=== PATIENT | female | born 1945 | race Caucasian/White ===

== ENCOUNTER → 2017-01-09 | Outpatient (CLI) | payer MEDICARE, OTHER ==
[~2017-01-09] MED LIST: CALCIUM 600/VIT1 TAB PO; CALCIUM 600600 M2 PO; CELEBREX 200MG200 MG PO; COLACE 100100 MG/CAP; FERROUS SU325 MG/TAB; LORTAB 7.5/5001 TAB PO; LYRICA 50MG CAP50 MG PO; LYRICA 75MG CAP75 MG PO; NORCO 325 MG-7.1 TAB PO; ONE DAILY1 TA1 PO; PREVACID 30MG30 M1 PO; ROXICODONE 55 MG/TAB PO; ULTRAM 50MG TAB50 MG PO; VITAMIN C500 MG PO; XARELTO10 MG; XERALTO PO; ZYLOPRIM 100MG100 MG
== END ==
LOC: COL.RAD 12:14
DX: M25.561 Pain in right knee (principal); M17.11 Unilateral primary osteoarthritis, right knee; Z96.642 Presence of left artificial hip joint

== ENCOUNTER → 2017-03-02 | Outpatient (CLI) | payer MEDICARE | LOC: COL.RAD 13:50 | DX: M17.11 Unilateral primary osteoarthritis, right knee (principal) ==

== ENCOUNTER 2022-06-25 13:18 | Inpatient (IN) | payer MEDICARE, OTHER ==
[2022-06-25] VITALS (17 sets, daily range): BP systolic 95–159; BP diastolic 52–98; PULSE 69–134; TEMP 97.7–100.8
[~2022-06-25] VITALS: Ht 162.6 cm; Wt 124.1 kg
[~2022-06-25 13:18] MED LIST changes: +CALCIUM 600 PLU1 TAB PO; -CALCIUM 600/VIT1 TAB PO; -COLACE 100100 MG/CAP; +COLACE 100100 MG/CAP PO
[2022-06-25 15:34] LABS: HEMATOCRIT 37.5 % (37.0-47.0); HEMOGLOBIN 11.9 g/dl (12.5-16.0); MEAN CELL VOLUME 93 fl (80.0-100.0); MEAN CORPUSCULAR HEMOGLOBIN 29 pg (27-31); MEAN CORPUSCULAR HGB CONC 32 g/dl (33.0-37.0); MEAN PLATELET VOLUME 10.3 fl (7.4-10.4); PLATELET COUNT 332 K/mm3 (130-400); RED BLOOD COUNT 4.05 M/mm3 (4.10-5.30); REDCELL DISTRIBUTION WIDTH-CV 13.6 % (11.5-14.5)
[2022-06-25 15:51] LABS: BILIRUBIN,TOTAL 1.1 mg/dL (0.2-1.2); CALCIUM 9.5 mg/dL (8.4-10.2); CREATININE, serum 1.2 mg/dL (0.57-1.11); POTASSIUM 3.9 mmol/L (3.5-4.5); TOTAL PROTEIN 5.9 gm/dL (6.2-8.1)
[2022-06-25] MEDS ORDERED: ELIQUIS 5MG PO (16:21)
[2022-06-25] MEDS ORDERED: VESICARE10 MG PO (16:21)
[2022-06-25] MEDS ORDERED: LASIX 20MG TABL20 MG PO (16:22)
[2022-06-25] MEDS ORDERED: TOPROL XL100 MG PO (16:22)
[2022-06-25 16:40] LABS: PARTIAL THROMBOPLASTIN TIME 40.9 SECONDS (26.0-37.0)
--- NOTE | 2022-06-25 18:00 | NUR ---
Patient admitted to room 327 from [facility] ED. Pharmacy, allergies, and medications reviewed. Admission paperwork completed. Tele informed this RN that patient was in Afib RVR. МАРИЯ Patiño notified and cardizem gtt and heparin gtt ordered and administered per protocol. Q15 min vitals in progress. VSS. Patient Alert, but intermittently confused. Lamb catheter in place. Securment device in use, no kinks in tubing. Patient running a temp of 100.8, tylenol given per orders. Patient is currently resting in bed, no s/s of pain or discomfort at this time. Respirations are even and unlabored. Call light in reach. Fall precautions in place.
--- NOTE | 2022-06-25 20:00 | NUR ---
PATIENT IS ORIENTED TO PERSON BUT OTHERWISE IS CONFUSED/FORGETFUL. PATIENT IS ABLE TO MAKE SMALL TALK WITH STAFF BUT IS UNSURE OF WHERE SHE IS, WHAT TIME OF DAY IT IS, OR HER SITUATION. NOTED IRREGULAR HR IN THE 90'S ON TELE, A-FIB. PATIENT HAS HX OF A-FIB AND TAKES ELIQUIS. HEPARIN GTT INFUSING AT 21CC/HR INTO RIGHT FORARM IV. CARDIZEM GTT INFUSING AT 5CC/HR WITH NS AT 100CC/HR INTO LEFT AC IV. PATIENT ALSO GETTING IV ABX, SEE MAR. PATIENT WILL NEED PICC LINE PLACEMENT WHICH SHOULD LIKELY OCCURE TOMORROW. COON TO DD WITH MOD AMOUNTS OF YELLOW URINE NOTED. NOTED SKIN ISSUES, SEE SHIFT ASSESSMENT. PT/OT/ST ALL CONSULTED. ORTHO AND I.D. SPECIALIST ALSO CONSULTED. HEAD TO TOE ASSESSMENT COMPLETE. NO OTHER NEEDS AT THIS TIME. CALL LIGHT IN REACH. BED ALARM ON.
[2022-06-26] VITALS (7 sets, daily range): BP systolic 99–149; BP diastolic 52–82; PULSE 56–107; TEMP 98.4–99.5
--- NOTE | 2022-06-26 00:25 | NUR ---
LAB REPORTED CRITICAL HEPXA RESULT. NURSING CONFIRMED PATIENT WAS TAKING ELIQUIS AT HOME, LAST DOSE YESTERDAY, WHICH CAN EFFECT THE HEPXA RESULTS. HEPARIN GTT SHOULD BE TITRADED WITH PTT RESULTS PER PROTOCOL. CALLED HOSPITALIST TO CONFIRM, SEE ORDER FOR ADD ON PTT.
--- NOTE | 2022-06-26 00:45 | NUR ---
LAB CALLED AND REPORTED ISSUES WITH ADD ON PTT, LAB WOULD NOT RUN. FOOD AND BEVERAGE OUTLETS MANAGER COMING UP TO 3RD FLOOR TO DO REDRAW.
--- NOTE | 2022-06-26 01:00 | NUR ---
LAB AT BEDSIDE TO OBTAIN PTT. HEPARIN GTT WAS STOPPED FOR MIN OF 10 MINUTES BEFORE DRAW.
--- NOTE | 2022-06-26 01:40 | NUR ---
LAB CALLED WITH CRITICAL PTT GREATER THAN 400. HEPARIN GTT STOPPED. HOSPITALIST NOTIFIED. PATIENT RESTING WITH NO CHANGE. HOSPITALIST TALKING WITH PHARMACY. SEE ORDERS.
[2022-06-26 04:02] LABS: HEMOGLOBIN 11.2 g/dl (12.5-16.0); MEAN CELL VOLUME 94 fl (80.0-100.0); MEAN CORPUSCULAR HEMOGLOBIN 29 pg (27-31); MEAN CORPUSCULAR HGB CONC 31 g/dl (33.0-37.0); PLATELET COUNT 302 K/mm3 (130-400); RED BLOOD COUNT 3.82 M/mm3 (4.10-5.30); REDCELL DISTRIBUTION WIDTH-CV 13.7 % (11.5-14.5)
[2022-06-26 04:10] LABS: HEMATOCRIT 35.8 % (37.0-47.0)
[2022-06-26 04:18] LABS: ALBUMIN 2.6 gm/dL (3.4-4.8); CALCIUM 8.7 mg/dL (8.4-10.2); CREATININE, serum 1.15 mg/dL (0.57-1.11); MAGNESIUM 1.5 mg/dL (1.6-2.6); PHOSPHOROUS 3.3 mg/dL (2.3-4.7); POTASSIUM 3.5 mmol/L (3.5-4.5)
--- NOTE | 2022-06-26 04:30 | NUR ---
CALLED CRITICAL PTT OF 252.3 AND WBC OF 24.1 TO HOSPITALIST. SEE ORDERS.
[2022-06-26 04:43] LABS: BAND 14 % (0-10); HYPOCHROMIA 2+; LYMPHOCYTE 7 % (20.0-51.0); NEUTROPHILS 77 % (42.0-75.2); PLATELET ESTIMATE NORMAL (NORMAL)
--- NOTE | 2022-06-26 07:51 | NUR ---
CONTACTED [facility] FOR RECS ON HEPARIN DRIP BASED ON NEW PTT RESULT. WILL CONTACT PHARMACY FOR RECS ON MODIFING HEPARIN DRIP BASED ON CURRENT ISSUES WITH AUDRA.
--- NOTE | 2022-06-26 07:56 | NUR ---
NEW RECS RECIEVED FROM LUCY PHARMICIST TO RESUME HEPARIN @ 21MLS/HR. RELAYED INFORMATION TO [facility], NEW ORDERS RECIEVED.
--- NOTE | 2022-06-26 08:10 | NUR ---
RESTARTED HEPARIN @2100/UNITS/HR.AT THIS TIME. PER CONSULTS WITH [facility] AND VANESSA CERVANTES.
--- NOTE | 2022-06-26 08:38 | NUR ---
CONTACTED [facility] AND RE: BLOOD CULTURE RESULTS. HOLD PICC PLACEMENT AT THIS TIME.
--- NOTE | 2022-06-26 10:00 | NUR ---
Patient's primary care nurse contacted ID and at this time due to + BC, PICC placement on hold.
--- NOTE | 2022-06-26 10:15 | NUR ---
PT RESTING IN BED ASSESSMENTS COMPLETE. VSS, HEPARIN RESTARTED PER ORDERS. PT TOLERATING WELL.
--- NOTE | 2022-06-26 12:24 | NUR ---
Initial visit; Patient robinekd Compensation Consulting Manager for looking in on her and visiting about her surgical procedure and her Physician along with Compensation Consulting Manager offering God's blessings and to keep her in Compensation Consulting Manager's prayers.
--- NOTE | 2022-06-26 12:46 | NUR ---
ironworker apprentice shop met with patient to complete intake and discuss discharge plan. Patient reports that she lives at home in [place] with her Bryant ([phone]). Patient is independent with her ADL's. She states that prior to her knee surgery, she was utilizing a cane to assist with ambulation, but has beben utilizing a FWW post surgery. Patient reports that she has been doing out patient therapy at [facility] in [place]. Patient has no home oxygen needs. PCP is Eugenia Hill out of [place] and she utilizes [facility] in [place] for prescriptions. Patient states that she does not have a DPOA-HC established. Education proovided and she is not interested in creating one at this time. Patient is scheduled to return to the OR tomorrow for I&D of her knee. Discharge plan: Home with continued OP-PT pending PT/OT eval
--- NOTE | 2022-06-26 13:19 | NUR ---
VERIFIED WITH [facility] THAT PT DID NOT RECIEVE ELIQUIS AT THEIR FACILITY AND PT AND REPORT THAT LAST DOSE WAS ON MON NIGHT. CALLED AND UPDATED JOSE RAINES.
--- NOTE | 2022-06-26 20:00 | NUR ---
PATIENT IS A&O. LOC IS MUCH IMPROVED SINCE ADMISSION AND PATIENT APPEARS TO NEARLY BACK TO BASELINE WITH SOME MILD, OCCATIONAL FORGETFULNESS NOTED. IRREGULAR HR IN THE 90'S TO LOW 100'S ON TELE. PATIENT HAS HX OF A-FIB AND TAKES ELIQUIS AT HOME. PATIENT IS CURRENTLY ON HEPARIN GTT INFUSION AT 22.5 CC/HR INTO RIGHT FORARM IV. CARDIZEM GTT INFUSING AT 5CC/HR WITH NS AT 100CC/HR INTO LEFT AC IV. PATIENT ALSO GETTING IV ABX, SEE DEC. PATIENT WILL NEED PICC LINE PENDING BLOOD CULTURES PER I.D. NO C/O N/V. TOLERATING AHA DIET. NPO AT MIDNIGHT FOR SCHEDULED I&D OF LEFT KNEE TOMORROW. COON TO DD WITH MOD AMOUNTS OF YELLOW URINE NOTED. NOTED SKIN ISSUES, SEE SHIFT ASSESSMENT. PT/OT/ST CONSULTED. HEAD TO TOE ASSESSMENT COMPLETE. NO OTHER NEEDS AT THIS TIME. CALL LIGHT IN REACH. BED ALARM ON.
--- NOTE | 2022-06-26 23:00 | NUR ---
CALLED LAB INQUIRING ABOUT ORDER FOR PTT AT 2230 PER THE PATIENT'S HEPARIN GTT PROTOCOL. CAREER DEVELOPMENT COUNSELOR NOW BEING SENT TO GET LAB. AWAITING RESULTS.
[2022-06-27] VITALS (431 sets, daily range): BP systolic 89–129; BP diastolic 47–73; PULSE 52–110; TEMP 97.9–99.6; O2SAT 53–100
--- NOTE | 2022-06-27 00:15 | NUR ---
STILL WAITING ON PTT RESULTS FROM LAB FOR THE PATIENT'S ORDERED PTT, PER PROTOCOL, AT 2230.
--- NOTE | 2022-06-27 00:20 | NUR ---
LAB CALLED AND REPORTED A CRITICAL PTT OF 312.8, NEARLY 2 HOURS AFTER SCHEDULED DRAW, SEE ORDERS. HEPARIN GTT STOPPED PER PROTOCOL, RECHECK PTT ORDERED IN 2 HOURS, SEE PROTOCOL.
[2022-06-27 06:12] LABS: MEAN CELL VOLUME 95 fl (80.0-100.0); MEAN CORPUSCULAR HGB CONC 31 g/dl (33.0-37.0); MEAN PLATELET VOLUME 10.4 fl (7.4-10.4); PLATELET COUNT 273 K/mm3 (130-400); RED BLOOD COUNT 3.21 M/mm3 (4.10-5.30); REDCELL DISTRIBUTION WIDTH-CV 14.3 % (11.5-14.5)
[2022-06-27 06:23] LABS: HEMATOCRIT 30.6 % (37.0-47.0); HEMOGLOBIN 9.4 g/dl (12.5-16.0); MEAN CORPUSCULAR HEMOGLOBIN 29 pg (27-31)
[2022-06-27 06:30] LABS: ALBUMIN 2.2 gm/dL (3.4-4.8); CALCIUM 8.1 mg/dL (8.4-10.2); CREATININE, serum 1.13 mg/dL (0.57-1.11); POTASSIUM 3.2 mmol/L (3.5-4.5)
[2022-06-27 06:57] LABS: BAND 7 % (0-10); BASOPHIL 1 % (0-2); EOSINOPHIL 2 % (0-4); LYMPHOCYTE 4 % (20.0-51.0); NEUTROPHILS 83 % (42.0-75.2); PLATELET ESTIMATE NORMAL (NORMAL)
[2022-06-27 11:18] LABS: PARTIAL THROMBOPLASTIN TIME 40.5 SECONDS (26.0-37.0)
--- NOTE | 2022-06-27 16:00 | NUR ---
TOLD BOWLING ALLEY MANAGER THAT PLAN WAS FOR PATIENTS HEPARIN DRIP TO BE HELD AT 0000 D/T LEFT KNEE SURGURY TOMORROW AT 0730.
--- NOTE | 2022-06-27 16:05 | NUR ---
REPORT CALLED TO JOHN IN ICU. PATIENT TAKEN DOWN TO ICU WITH . ALL BELONGINGS TAKEN WITH HER. PATIENT LEFT WITH CARDIZEM, HEPARIN AND FLUID BOLUS INFUSING. JOINTER OPERATOR AWARE.
--- NOTE | 2022-06-27 16:15 | NUR ---
PT ARRIVED FROM SURGICAL 327. REPORT RECEIVED FROM YARED. PT IS AX0X4. PT IS AFIB ON TELE 120'S. OTHER VSS. PT ORIENTED TO ROOM AND UNIT. SILVIO JOHNSTON DCD AND MISSAEL JOHNSTON STARTED. FREDA BEDSIDE AND INFORMED OF VISITING HOURS AND PHONE NUMBERS. PT HAS CALL LIGHT WITHIN REACH AND INSTRUCTED TO CALL WITH ALL NEEDS.
--- NOTE | 2022-06-27 16:28 | NUR ---
Vancomycin Follow-up Pharmacy Note Current regimen: Vancomycin 1.5 gm IV q12h Vancomycin trough: 26 Adjustments: Will hold dose to allow level to clear, then restart Vancomycin 1 gm IV q12h. Pharmacy will continue to closely monitor and check Vancomycin trough on 06/29/22.
--- NOTE | 2022-06-27 22:11 | NUR ---
BEDSIDE SHIFT REPORT RECEIVED FROM KODY LOPEZ. PT CURRENTLY RESTING IN BED. NO C/O PAIN OR DISCOMFORT. FLUIDS RUNNING ACCORDING TO REPORT (SEE DRIP FLOW SHEET). COON DRAINING APPROPRIATELY. VSS. NO ACUTE CHANGES NOTED AT THIS TIME
[2022-06-28] VITALS (1058 sets, daily range): BP systolic 91–130; BP diastolic 62–101; PULSE 106–148; TEMP 97.8–98.8; O2SAT 75–100
--- NOTE | 2022-06-28 01:17 | NUR ---
HEPARIN DRIP TURNED OFF AT MIDNIGHT IN PREPERATION FOR OR SURGERY AT 0700 IN THE MORNING
[2022-06-28 05:19] LABS: BASO # 0.1 K/mm3 (0.0-0.2); BASO % 0.4 % (0.0-2.0); EOS # 0.1 K/mm3 (0.0-0.7); GRAN # 12.2 K/mm3 (1.4-6.5); GRAN % 88.2 % (42.2-75.2); LYMPH # 0.6 K/mm3 (1.2-3.4); LYMPH % 4.1 % (20.0-51.0); MEAN CELL VOLUME 91 fl (80.0-100.0); MEAN CORPUSCULAR HGB CONC 33 g/dl (33.0-37.0); MONO # 0.8 K/mm3 (0.1-0.6); MONO % 5.6 % (1.7-9.3); PLATELET COUNT 269 K/mm3 (130-400); RED BLOOD COUNT 2.88 M/mm3 (4.10-5.30); REDCELL DISTRIBUTION WIDTH-CV 13.8 % (11.5-14.5)
[2022-06-28 05:27] LABS: ALBUMIN 1.8 gm/dL (3.4-4.8); CALCIUM 6.7 mg/dL (8.4-10.2); CREATININE, serum 0.62 mg/dL (0.57-1.11); MAGNESIUM 1.5 mg/dL (1.6-2.6); PHOSPHOROUS 1.7 mg/dL (2.3-4.7); POTASSIUM 3.1 mmol/L (3.5-4.5)
[2022-06-28 05:41] LABS: HEMATOCRIT 26.1 % (37.0-47.0); HEMOGLOBIN 8.6 g/dl (12.5-16.0); MEAN CORPUSCULAR HEMOGLOBIN 30 pg (27-31)
--- NOTE | 2022-06-28 07:00 | NUR ---
REPORT RECEIVED FROM KODY SHINE. PT TAKEN TO SURGERY APPROX 15 MIN AGO FOR I&D AND LEFT KNEE WOUND.
--- NOTE | 2022-06-28 08:00 | NUR ---
PT IN SURGERY AT THIS TIME. UNABLE TO ASSESS.
--- NOTE | 2022-06-28 11:03 | NUR ---
PT ARRIVES BACK FROM SURGERY AT THIS TIME. IS ALERT AND ORIENTED. OFFERS NO COMPLAINTS OF PAIN. CONTINUES TO BE IN AFIB WITH RATE IN 130-140'S. INCISION TO LEFT KNEE WITH SURGICAL DRESSING COVERING; NO DRAINAGE PRESENT.
--- NOTE | 2022-06-28 20:00 | NUR ---
SHIFT REPORT RECEIVED. PT A&O X4. PT WITH LT KNEE INCISION, BANDAGED BY STERI STRIPS, XEROFORM, 4X4 GAUZE, ABD, SOFT AGUZE WRAP AND SUMMER BANDAGE WRAP THAT COVERS FROM MID THIGH TO FOOT. NO DRAINAGE NOTED ON WRAPS. LACERATION ON LT HAND. BUE SCATTERED ECCHYMOSIS. SCD ON RLE. PT REPORTS RT HEEL DISCOMFORT. BL HEEL FLOATERS PLACED FOR COMFORT. PT REPORTS LT KNEE PAIN 04/11. [facility] PAIN MANAGEMENT PROVIDED.
[2022-06-29] VITALS (711 sets, daily range): BP systolic 136–155; BP diastolic 93–115; PULSE 77–93; TEMP 97.5–98.7; O2SAT 71–100
[2022-06-29 06:46] LABS: BASO % 0.3 % (0.0-2.0); GRAN # 10.6 K/mm3 (1.4-6.5); GRAN % 89.4 % (42.2-75.2); HEMOGLOBIN 10.5 g/dl (12.5-16.0); LYMPH # 0.5 K/mm3 (1.2-3.4); LYMPH % 4.5 % (20.0-51.0); MEAN CELL VOLUME 94 fl (80.0-100.0); MEAN CORPUSCULAR HEMOGLOBIN 30 pg (27-31); MEAN CORPUSCULAR HGB CONC 32 g/dl (33.0-37.0); MEAN PLATELET VOLUME 9.8 fl (7.4-10.4); MONO # 0.6 K/mm3 (0.1-0.6); MONO % 5.2 % (1.7-9.3); PLATELET COUNT 321 K/mm3 (130-400); RED BLOOD COUNT 3.56 M/mm3 (4.10-5.30); REDCELL DISTRIBUTION WIDTH-CV 13.9 % (11.5-14.5)
[2022-06-29 06:50] LABS: HEMATOCRIT 33.3 % (37.0-47.0)
--- NOTE | 2022-06-29 07:08 | NUR ---
BEDSIDE REPORT RECEIVED FROM KODY ESCOBAR.
[2022-06-29 07:11] LABS: ALBUMIN 2.3 gm/dL (3.4-4.8); CALCIUM 8.7 mg/dL (8.4-10.2); CREATININE, serum 0.82 mg/dL (0.57-1.11); MAGNESIUM 2.6 mg/dL (1.6-2.6); PHOSPHOROUS 2.5 mg/dL (2.3-4.7); POTASSIUM 4.9 mmol/L (3.5-4.5)
--- NOTE | 2022-06-29 08:48 | NUR ---
SURGICAL DRESSING REPLACED BY ORTHO. AQUACELL PLACED OVER INCISION. INCISION CLEAN, DRY, AND INTACT WITH NO DRAINAGE PRESENT. AQUACELL TO REMAIN IN PLACE X1 WEEK. OKAY TO SHOWER WITH DRESSING AND GET WET.
[2022-06-29] MEDS ORDERED: SYNTHROID0.05 MG/TA PO (21:34)
[2022-06-30] VITALS (337 sets, daily range): BP systolic 113–144; BP diastolic 67–89; PULSE 64–98; TEMP 97.4–98; O2SAT 63–100
[2022-06-30 06:15] LABS: BASO % 0.2 % (0.0-2.0); EOS % 0.2 % (0.0-4.0); GRAN # 8.3 K/mm3 (1.4-6.5); GRAN % 79.3 % (42.2-75.2); LYMPH # 1.2 K/mm3 (1.2-3.4); MEAN CELL VOLUME 92 fl (80.0-100.0); MEAN CORPUSCULAR HEMOGLOBIN 29 pg (27-31); MEAN CORPUSCULAR HGB CONC 32 g/dl (33.0-37.0); MEAN PLATELET VOLUME 9.9 fl (7.4-10.4); MONO # 0.9 K/mm3 (0.1-0.6); MONO % 8.3 % (1.7-9.3); PLATELET COUNT 401 K/mm3 (130-400); RED BLOOD COUNT 3.79 M/mm3 (4.10-5.30); REDCELL DISTRIBUTION WIDTH-CV 14.1 % (11.5-14.5)
[2022-06-30 06:16] LABS: HEMATOCRIT 34.8 % (37.0-47.0)
[2022-06-30 06:42] LABS: ALBUMIN 2.4 gm/dL (3.4-4.8); CALCIUM 8.9 mg/dL (8.4-10.2); CREATININE, serum 0.84 mg/dL (0.57-1.11); MAGNESIUM 2.2 mg/dL (1.6-2.6); PHOSPHOROUS 3.2 mg/dL (2.3-4.7); POTASSIUM 4.9 mmol/L (3.5-4.5)
--- NOTE | 2022-06-30 07:00 | NUR ---
Pt resting in bed. VSS. Pt eating breakfast. Pt has call light within reach and instructed to call with all needs.
--- NOTE | 2022-06-30 12:30 | NUR ---
REPORT GIVEN TO MADYSON GATES. ALL QUESTIONS ANSWERED. 1249- PT TRANSPORTED TO [facility]. MADYSON GATES MET BEDSIDE. INFORMED OF PTS HOME NORCO LOCKED IN PHARMACY AND PAPER ON CHART.
--- NOTE | 2022-06-30 18:06 | NUR ---
PATIENT BROUGHT TO FLOOR FROM UNIT. PATIENT ALERT TO SELF, DISPLAYS INTERMITTENT CONFUSION. PATIENT DENIES PAIN. VSS. PICC TO RIGHT UPPER ARM WITH DOUBLE LUMEN, FLUSHES WELL WITH GOOD BLOOD RETURN. PATIENT ON ROOM AIR. PATIENT AMBULATED WITH THERAPY. AMBULATED TO SHOWER WITH NURSE, BATHED, AND DRESSINGS TO LEFT IQBAL AND LEFT KNEE CHANGED. JAYMIE GARCIA'Rosi. PATIENT IN BED WITH BED ALARM ACTIVATED AND CALL LIGHT WITHIN REACH.
--- NOTE | 2022-06-30 20:32 | NUR ---
PT A&OX4 RESTING IN BED. MEDS GIVEN AND ASSESSMENT COMPLETE. PT RATES PN A 6/10 IN LT KNEE. AQUACELL DRESSING WITH DRAINAGE. GAUZE DRESSING APPLIED TO IQBAL CDI. TELE IN PLACE AND VS ARE STABLE. PICC TO YOSSI, FLUSHES W BLOOD RETURN. SCD TO RLE. NO NEEDS AT THIS TIME. CALL LIGHT WITHIN REACH.
--- NOTE | 2022-06-30 23:57 | NUR ---
NEW AQUACELL DRESSING TO LT KNEE. SANGANOUS DRAINAGE PRESENT ON DRESSING.
[2022-07-01 00:05] VITALS: BP 108/58; PULSE 40; TEMP 97.4
[2022-07-01 04:45] VITALS: BP 123/82; PULSE 78; TEMP 97.5
--- NOTE | 2022-07-01 06:15 | NUR ---
NEW GAUZE DRESSING APPLIED TO LLE DUE TO DRAINAGE
[2022-07-01 06:39] LABS: CALCIUM 8.8 mg/dL (8.4-10.2); CREATININE, serum 1.01 mg/dL (0.57-1.11); POTASSIUM 4.5 mmol/L (3.5-4.5)
[2022-07-01 07:05] LABS: HEMOGLOBIN 10.8 g/dl (12.5-16.0); MEAN CELL VOLUME 91 fl (80.0-100.0); MEAN CORPUSCULAR HEMOGLOBIN 29 pg (27-31); MEAN CORPUSCULAR HGB CONC 32 g/dl (33.0-37.0); MEAN PLATELET VOLUME 9.9 fl (7.4-10.4); PLATELET COUNT 398 K/mm3 (130-400); RED BLOOD COUNT 3.74 M/mm3 (4.10-5.30)
[2022-07-01 07:07] LABS: HEMATOCRIT 34.2 % (37.0-47.0)
[2022-07-01 07:37] VITALS: BP 139/71; PULSE 89; TEMP 98.1
[2022-07-01 08:33] LABS: BAND 6 % (0-10); EOSINOPHIL 1 % (0-4); LYMPHOCYTE 17 % (20.0-51.0); NEUTROPHILS 61 % (42.0-75.2); PLATELET ESTIMATE NORMAL (NORMAL)
--- NOTE | 2022-07-01 09:10 | NUR ---
PATIENT ALERT AND ORIENTED. VSS. PATIENT DENIES PAIN AT THIS TIME. PATIENT HERE FOR LEFT KNEE INFECTION. AQUACELL WITH SIGNIFICANT DRAINAGE. LEFT IQBAL WOUND WITH DRAINAGE. PICC TO RIGHT UPPER ARM, DOUBLE LUMEN, FLUSHES WELL WITH GOOD BLOOD RETURN. PATIENT AMBULATED TO BATHROOM AND IS VOIDING. PATIENT ON ROOM AIR. BLE EDEMA. PATIENT RESTING IN BED WITH CALL LIGHT NEAR.
--- NOTE | 2022-07-01 11:51 | NUR ---
SW met with patient to discuss discharge plan. Educated the patient that i can get IV antibiotics established for her to get them at home through [facility]. Patient is agreeable to this and clinical information faxed to [place] with [facility]. YADIRA discussed the need for either HH therapy or SNF options. Patient is not agreeable to either of these options. She is insistent with doing outpatient therapy through [facility] system in [place] with therapist Yvan Sheehan who she has been seeing for the past several months.
[2022-07-01 12:03] VITALS: BP 128/75; PULSE 80; TEMP 98.4
[2022-07-01 15:32] VITALS: BP 130/77; PULSE 80; TEMP 98.8
--- NOTE | 2022-07-01 16:02 | NUR ---
Phone call received from Natalee at [facility] and they are not in network with this patient's part D plan. Natalee suggests that i call [facility] (Liz @ [phone]) to see if they would be able to help. SW contacted Liz who states that the patient would have a $15 a day charge for pump and supplies in addition to her part D co-pay.--Patient may need to go to [facility] for IV antibiotics. During physician rounding, hospital team notified that the patient is very much against home health.Hospitalist will speak with the patient.
[2022-07-01 20:00] VITALS: BP 130/78; PULSE 83; TEMP 97.9
--- NOTE | 2022-07-01 20:31 | NUR ---
PT A&OX4 RESTING IN BED. RATES PN IN LT KNEE A 04/11. MEDS GIVEN AND ASSESSMENT COMPLETE. LLE DRESSINGS ARE BOTH CDI. VS STABLE AND TELE IN PLACE. PICC TO YOSSI FLUSHES AND RETURNS WELL. FALL PRECAUTIONS IN PLACE. CALL LIGHT WITHIN REACH. NO NEEDS AT THIS TIME. PT NPO AT [place] FOR CARDIOVERSION.
[2022-07-02] VITALS (13 sets, daily range): BP systolic 97–157; BP diastolic 57–94; PULSE 58–102; TEMP 97.7–98.7
[2022-07-02 06:59] LABS: HEMOGLOBIN 10.4 g/dl (12.5-16.0); MEAN CELL VOLUME 92 fl (80.0-100.0); MEAN CORPUSCULAR HEMOGLOBIN 29 pg (27-31); MEAN CORPUSCULAR HGB CONC 31 g/dl (33.0-37.0); MEAN PLATELET VOLUME 10.1 fl (7.4-10.4); PLATELET COUNT 382 K/mm3 (130-400); RED BLOOD COUNT 3.64 M/mm3 (4.10-5.30); REDCELL DISTRIBUTION WIDTH-CV 14.1 % (11.5-14.5)
[2022-07-02 07:06] LABS: HEMATOCRIT 33.6 % (37.0-47.0)
[2022-07-02 07:19] LABS: CALCIUM 8.7 mg/dL (8.4-10.2); CREATININE, serum 0.95 mg/dL (0.57-1.11); POTASSIUM 4.1 mmol/L (3.5-4.5)
--- NOTE | 2022-07-02 08:00 | NUR ---
Pt. sitting up in bed. Pt. is a&OX3, assessment complete. PICC line to rt. upper arm patent. Dressing to lt. knee and lt. mcdaniel CDI. Pt. denies pain or other needs, call light within reach.
[2022-07-02 08:22] LABS: BAND 1 % (0-10); EOSINOPHIL 5 % (0-4); LYMPHOCYTE 29 % (20.0-51.0); METAMYELOCYTE 1 % (0-0); NEUTROPHILS 53 % (42.0-75.2)
[2022-07-02 08:23] LABS: PLATELET ESTIMATE NORMAL (NORMAL)
[2022-07-02] MEDS ORDERED: ANCEF1 GM IV (11:32)
--- NOTE | 2022-07-02 12:38 | NUR ---
sheet metal worker apprentice met with patient to discuss needs upon discharge. Patient verbalizes understanding of the need for IV antibiotics, PICC line care, and wound management and verbalizes she is agreeable to home health now. Worker provided the Medicare.gov share form for home health and worker confirmed that [facility] cannot accept patient due to distance away. Patient stated that she is agreeable with only other agency ([facility]). Worker contacted [facility] and gave the referral. Worker contacted [facility] and gave the referral. Will await for acceptances.
--- NOTE | 2022-07-02 14:09 | NUR ---
side door worker gave the infusion referral to [facility] and they advised that per patient's Plan D coverage they are not in network and there are no known infusion companies in network. Worker collaborated with patient's provider regarding the above information.
[2022-07-02] MEDS ORDERED: CUBICIN 500MG500 MG IV (14:31)
--- NOTE | 2022-07-02 16:11 | NUR ---
land surveying survey worker met with patient and advised that IV antibiotic was now once daily. Worker advised that her insurance will not cover patient's medications at home. Patient is agreeable to once daily IV medication at the [facility] and states she has transportation to the hospital. Worker collaborated with Jazmín, provider, on the above informaiton. Worker contacted Kathi at the [facility] and faxed clinical information and orders. Patient will receive first dose of IV medication at the [facility] on 07/04/22.
--- NOTE | 2022-07-02 21:12 | NUR ---
PT A&OX4 RESTING IN BED. MEDS GIVEN AND ASSESSMENT COMPLETE. PICC TO YOSSI W GOOD BLOOD RETURN. TELE IN PLACE AND VS STABLE. PT RATES LT KNEE PN A 03/11. DRESSING TO LLE CDI. FALL PRECAUTIONS IN PLACE. NO NEEDS AT THIS TIME. CALL LIGHT WITHIN REACH. PT NPO AT [place] FOR LOOP RECORDER PLACEMENT MINA.
[2022-07-03 00:25] VITALS: BP 118/54; PULSE 54; TEMP 98.1
[2022-07-03 04:46] VITALS: BP 142/69; PULSE 52; TEMP 98.1
[2022-07-03 08:24] VITALS: BP 144/54; PULSE 55; TEMP 98
[2022-07-03] MEDS ORDERED: CORDARONE200 MG/TAB PO (09:35)
[2022-07-03] MEDS ORDERED: CUBICIN 500MG500 MG IV (09:41)
--- NOTE | 2022-07-03 10:17 | NUR ---
SW provided patient with MCR.Im form. Education provided and patient verbalized her understanding and agreement with discharge plan. Patients signed original placed in the patient's chart and copy provided back to the patient.
[2022-07-03 12:23] VITALS: BP 142/58; PULSE 57; TEMP 98.4
--- NOTE | 2022-07-03 14:10 | NUR ---
Pt. orders for discharge. Pt. reviewed discharge instructions, follow-up appointments, daily abx info, new meds, home med rec, and wound care. Pt. voices understanding. PICC line dressing noted. Reviewed PICC line care with the pt. Pt. voices understanding. Pt. dressed and escorted out.
--- NOTE | 2022-07-03 15:40 | NUR ---
baby formula worker met with patient and confirmed that patient can get transportation to [facility] for outpatient IV antibiotics daily at 11:00. Worker spoke with Kathi at the [facility] and faxed orders for IV antibiotics and PICC line care. Abigail confirms that they can provide above services to start 07/04/22. Worker collaborated with patient's provider regarding above discharge plans.
--- NOTE | 2022-07-08 15:41 | NUR ---
Patient's discharge orders faxed to [facility]
== END 2022-07-03 14:25 | disposition home or self-care (01) | DRG 485 ==
LOC: ICU 13:18 → SURG 13:18 → ICU 06-27 16:09 → SURG 06-30 12:52
PROVIDERS: Internal Medicine Cardiovascular Disease; Physician Assistant; Student in an Organized Health Care Education/Training Program; ADMIT Internal Medicine
PROC: 02HV33Z Insertion of Infusion Device into Superior Vena Cava, Percutaneous Approach (ICD-10-PCS; 2022-06-27)
PROC: 0SPD09Z Removal of Liner from Left Knee Joint, Open Approach (ICD-10-PCS; 2022-06-28)
PROC: 0SUW09Z Supplement Left Knee Joint, Tibial Surface with Liner, Open Approach (ICD-10-PCS; 2022-06-28)
PROC: 5A2204Z Restoration of Cardiac Rhythm, Single (ICD-10-PCS; principal; 2022-07-02)
PROC: 0JH632Z Insertion of Monitoring Device into Chest Subcutaneous Tissue and Fascia, Percutaneous Approach (ICD-10-PCS; 2022-07-03)
DX: T84.54XA Infection and inflammatory reaction due to internal left knee prosthesis, initial encounter (principal); A41.9 Sepsis, unspecified organism; G93.41 Metabolic encephalopathy; I48.92 Unspecified atrial flutter; M00.9 Pyogenic arthritis, unspecified; I48.20 Chronic atrial fibrillation, unspecified; E87.1 Hypo-osmolality and hyponatremia; L97.929 Non-pressure chronic ulcer of unspecified part of left lower leg with unspecified severity; Z96.652 Presence of left artificial knee joint; Z96.642 Presence of left artificial hip joint; I12.9 Hypertensive chronic kidney disease with stage 1 through stage 4 chronic kidney disease, or unspecified chronic kidney disease; Y83.8 Other surgical procedures as the cause of abnormal reaction of the patient, or of later complication, without mention of misadventure at the time of the procedure; N18.30 Chronic kidney disease, stage 3 unspecified; I27.20 Pulmonary hypertension, unspecified; I95.9 Hypotension, unspecified; K59.09 Other constipation; G89.29 Other chronic pain; M54.50 Low back pain, unspecified; G47.33 Obstructive sleep apnea (adult) (pediatric); D64.9 Anemia, unspecified; I08.1 Rheumatic disorders of both mitral and tricuspid valves; E87.6 Hypokalemia; B95.61 Methicillin susceptible Staphylococcus aureus infection as the cause of diseases classified elsewhere; I25.2 Old myocardial infarction; Y92.89 Other specified places as the place of occurrence of the external cause; Z88.6 Allergy status to analgesic agent; Z88.1 Allergy status to other antibiotic agents; Z90.710 Acquired absence of both cervix and uterus; Z90.89 Acquired absence of other organs; Z79.01 Long term (current) use of anticoagulants; Z87.891 Personal history of nicotine dependence
CPT/HCPCS: A9284; C1751; C1764; C1776; C1892; J0282; J0360; J0690; J0696; J0878; J1100; J1170; J1644; J2250; J2405; J2543; J2704; J3010; J3370; J3475; J3480; J7030; J7040; J7050; J7060; J7120